=== PATIENT | female | born 1970 | race Caucasian/White ===

== ENCOUNTER → 2016-07-08 | Outpatient (REF) | payer BC ==
[2016-07-08 13:50] LABS: TOTAL PROTEIN 5.9 GM/DL (6.4-8.2)
[2016-07-10 00:08] LABS: FREE KAPPA LIGHT CHAINS SERUM <0.60 mg/L (3.30-19.40); FREE LAMBDA LIGHT CHAINS SERUM <1.30 mg/L (5.71-26.30)
[2016-07-12 11:12] LABS: ALBUMIN 3.98 GM/DL (3.29-5.55); ALBUMIN % 67.5 % (55.8-66.1); GAMMA GLOBULIN % 5.4 % (11.1-18.8)
== END ==
LOC: M LAB REF 13:28
PROVIDERS: ATTEND Internal Medicine Medical Oncology
DX: C90.00 Multiple myeloma not having achieved remission (principal)

== ENCOUNTER → 2016-10-05 | Outpatient (REF) | payer BC ==
[2016-10-05 14:16] LABS: TOTAL PROTEIN 6.2 GM/DL (6.4-8.2)
[2016-10-07 00:06] LABS: FREE KAPPA LIGHT CHAINS SERUM 3.25 mg/L (3.30-19.40); FREE LAMBDA LIGHT CHAINS SERUM 2.19 mg/L (5.71-26.30); KAPPA/LAMBDA RATIO SERUM 1.48 (0.26-1.65)
[2016-10-08 11:00] LABS: ALBUMIN 4.46 GM/DL (3.29-5.55)
== END ==
LOC: M LAB REF 12:54
PROVIDERS: ATTEND Internal Medicine Medical Oncology
DX: C90.00 Multiple myeloma not having achieved remission (principal)

== ENCOUNTER → 2017-03-18 | Outpatient (REF) | payer BC ==
[2017-03-18 13:30] LABS: BASO # 0.1 10^3/uL (0.0-0.2); BASO % 1.6 % (0.0-1.0); EOS # 0.1 10^3/uL (0.0-0.50); EOS % 2.9 % (0.0-3.0); IMMATURE GRANULOCYTE % 0.5 % (0-0); LYMPH # 0.5 10^3/uL (1.5-4.5); LYMPH % 11.3 % (24.0-44.0); MEAN CORPUSCULAR HEMOGLOBIN 31.6 pg (27.0-33.0); MEAN CORPUSCULAR HGB CONC 33.7 g/dl (32.0-36.5); MEAN CORPUSCULAR VOLUME 93.9 fl (80.0-96.0); MONO # 0.5 10^3/uL (0.0-0.8); MONO % 11.1 % (0.0-5.0); NEUTROPHILS # 3.2 10^3/uL (1.8-7.7); NEUTROPHILS % 72.6 % (36.0-66.0); PLATELET COUNT, AUTOMATED 154 10^3/uL (150-450); RED CELL DISTRIBUTION WIDTH 13.6 % (11.5-14.5); WHITE BLOOD COUNT 4.4 10^3/uL (4.0-10.0)
[2017-03-18 13:47] LABS: VITAMIN B12 LEVEL 993 PG/ML (247-911)
[2017-03-18 13:48] LABS: FOLATE > 24.0 NG/ML (>5.4)
[2017-03-18 14:09] LABS: ALBUMIN 4.3 GM/DL (3.2-5.2); ALBUMIN/GLOBULIN RATIO 1.95 (1.00-1.93); ALKALINE PHOSPHATASE 167 U/L (45-117); ALT/SGPT 535 U/L (12-78); ANION GAP 5 MEQ/L (8-16); AST/SGOT 434 U/L (15-37); BILIRUBIN,TOTAL 0.7 MG/DL (0.2-1.0); BLOOD UREA NITROGEN 14 MG/DL (7-18); CALCIUM LEVEL 8.9 MG/DL (8.5-10.1); CARBON DIOXIDE LEVEL 33 MEQ/L (21-32); CHLORIDE LEVEL 104 MEQ/L (98-107); CREATININE FOR GFR 0.67 MG/DL (0.55-1.02); GLOMERULAR FILTRATION RATE > 60.0 (>58); GLUCOSE, FASTING 75 MG/DL (70-105); POTASSIUM SERUM 3.7 MEQ/L (3.5-5.1); SODIUM LEVEL 142 MEQ/L (136-145); TOTAL PROTEIN 6.5 GM/DL (6.4-8.2)
[2017-03-18 14:12] LABS: ERYTHROCYTE SEDIMENTATION RATE 8 mm/hr (0-20)
[2017-03-22 10:38] LABS: ALBUMIN 4.43 GM/DL (3.29-5.55); ALBUMIN % 68.1 % (55.8-66.1); GAMMA GLOBULIN % 5.4 % (11.1-18.8)
[2017-03-23 08:06] LABS: SJOGREN'S ANTI SS-A <0.2 AI (0.0-0.9); SJOGREN'S ANTI SS-B <0.2 AI (0.0-0.9); VITAMIN E LEVEL 13.6 mg/L (5.3-16.8)
== END ==
LOC: M LABNEURO 09:32
PROVIDERS: ATTEND Psychiatry & Neurology Neurology
DX: G62.9 Polyneuropathy, unspecified (principal)

== ENCOUNTER → 2018-09-30 | Outpatient (CLI) | payer BC ==
[2018-09-30 19:27] LABS: BASO % 0.4 % (0.0-1.0); EOS # 0.1 10^3/uL (0.0-0.50); EOS % 0.5 % (0.0-3.0); HEMATOCRIT 43.3 % (36.0-47.0); HEMOGLOBIN 14.2 g/dl (12.0-15.5); LYMPH # 1.4 10^3/uL (1.5-4.5); LYMPH % 14.9 % (24.0-44.0); MEAN CORPUSCULAR HEMOGLOBIN 32.4 pg (27.0-33.0); MEAN CORPUSCULAR HGB CONC 32.8 g/dl (32.0-36.5); MEAN CORPUSCULAR VOLUME 98.9 fl (80.0-96.0); MONO % 11.3 % (0.0-5.0); NEUTROPHILS # 6.6 10^3/uL (1.8-7.7); NEUTROPHILS % 72.6 % (36.0-66.0); PLATELET COUNT, AUTOMATED 177 10^3/uL (150-450); RED BLOOD COUNT 4.38 10^6/uL (4.00-5.40); WHITE BLOOD COUNT 9.1 10^3/uL (4.0-10.0)
== END ==
LOC: M WUC 09:00
PROVIDERS: ATTEND Physician Assistant
DX: J03.90 Acute tonsillitis, unspecified (principal)

== ENCOUNTER → 2018-12-08 | Outpatient (REF) | payer BC, MEDICARE | LOC: M SFHCPLAZ 16:48 | PROVIDERS: ATTEND Dermatology | DX: D22.4 Melanocytic nevi of scalp and neck (principal) ==

== ENCOUNTER → 2018-12-31 | Outpatient (REF) | payer BC, MEDICARE | LOC: M LAB REF 10:15 | PROVIDERS: ATTEND Physician Assistant | DX: R30.0 Dysuria (principal) ==

== ENCOUNTER → 2019-05-01 | Outpatient (REF) | payer BC, MEDICARE | LOC: M LAB REF 18:41 | PROVIDERS: ATTEND Dermatology | DX: D22.4 Melanocytic nevi of scalp and neck (principal) ==

== ENCOUNTER → 2020-01-01 | Outpatient (REF) | payer BC, MEDICARE | LOC: M LAB REF 09:17 | PROVIDERS: ATTEND Dermatology | DX: D22.4 Melanocytic nevi of scalp and neck (principal) ==

== ENCOUNTER → 2021-02-17 | Outpatient (CLI) | payer BC ==
--- NOTE | 2021-02-17 13:38 | DEXAMM ---
INDICATION: H/O AUTOLOGOUS STEM CELL TRANSPLANT/MULTIPLE MYELOMA/REMISSION. COMPARISON: None. TECHNIQUE: Bone density was measured using dual-energy x-ray absorptiometry (DEXA). FINDINGS: AP SPINE L1-L4 BMD 0.972 g/cm2 Young Adult T-Score -1.8 Age Matched Z-Score -1.4. LT FEMUR, TOTAL BMD 0.862 g/cm2 Young Adult T-Score -1.2 Age Matched Z-Score -0.7. LT NECK BMD 0.802 g/cm2 Young Adult T-Score -1.7 Age Matched Z-Score -0.9. RT FEMUR, TOTAL BMD 0.796 g/cm2 Young Adult T-Score -1.7 Age Matched Z-Score -1.2. RT NECK BMD 0.742 g/cm2 Young Adult T-Score -2.1 Age Matched Z-Score -1.4. IMPRESSION: There is low bone density of the spine. There is low bone density of the left hip. There is low bone density of the right hip. FOLLOW-UP: Recommendation for the next bone density exam: 2 years. <Electronically signed by Reynaldo Lott > 02/17/21 0026
== END ==
LOC: M WHC 12:47
PROVIDERS: ATTEND Internal Medicine Hematology & Oncology
DX: C90.00 Multiple myeloma not having achieved remission (principal)

== ENCOUNTER → 2021-11-19 | Outpatient (REF) | payer BC, MEDICARE | LOC: M WUC 11:53 | PROVIDERS: ATTEND Physician Assistant | DX: J03.90 Acute tonsillitis, unspecified (principal) ==

== ENCOUNTER 2023-02-04 10:42 | Day surgery (SDC) | payer BC ==
[~2023-02-04] VITALS: Ht 149.9 cm; Wt 71.8 kg
[~2023-02-04 10:42] MED LIST: ALAW0.02 OD; ALBU8.5H INH; ALLE180T33 PO; ALPR0.25 PO; BACTDSTA PO; BAYE81TA7 PO; BUTA1CAP PO; CALC-218 PO; CARI1TAB7 PO; COLA100C5 PO; DULO1CAP5 PO; GABA-282 PO; HYDR-3713 PO; MAGN400C PO; MIRA3350 PO; MONT10TA97 PO; NIFE-3 PO; OMEG12003 PO; OMEP40CA5 PO; ONE-TAB33 PO; POMA2CAP PO; PRED5TA PO; REFR0.5D8 OD; VALA500T5 PO; XGEVINJ SC; ZYRT10TA12 PO; ceFAZolin SOD 2 GM in IV 1 EA IV ONE
[2023-02-04] MEDS ORDERED: LR 1,000 ML IV SCH (11:15)
[2023-02-04] MEDS ORDERED: propofoL 200 MG/20 ML VIAL As Ordered ONE ×2 (13:22→13:23)
[2023-02-04] MEDS ORDERED: LIDOCAINE 2% 100MG/5ML SDV (FOR ANES.) As Ordered ONE (13:24)
[2023-02-04] MEDS ORDERED: GENTAMICIN SULF 80MG/2ML VIAL As Ordered ONE (14:01)
[2023-02-04] MEDS ORDERED: LIDOCAINE 2% MDV 20ML VIAL As Ordered ONE (14:01)
[2023-02-04] MEDS ORDERED: MIDAZOLAM INJ 2MG/2ML VIAL As Ordered ONE (14:04)
[2023-02-04] MEDS ORDERED: fentaNYL 100 MCG/2 ML INJECTION As Ordered ONE (14:04)
[2023-02-04 15:26] VITALS: BP 114/51; TEMP 97.3; O2SAT 97
== END 2023-02-04 15:50 | disposition home or self-care (01) ==
LOC: M SDC 10:42
PROVIDERS: ATTEND Podiatrist
DX: M20.41 Other hammer toe(s) (acquired), right foot (principal)
CPT/HCPCS: 28285; 73630; 76000; 88300; J0665; J0690; J1580; J2250; J3010

== ENCOUNTER → 2025-02-25 | Outpatient (CLI) | payer BC, MEDICARE ==
[~2025-02-25] MED LIST changes: +CARI-555 PO; -CARI1TAB7 PO; +GABA-1172 PO; -GABA-282 PO; -ceFAZolin SOD 2 GM in IV 1 EA IV ONE
== END ==
LOC: M WHC 09:38
PROVIDERS: ATTEND Nurse Practitioner Family
DX: C90.01 Multiple myeloma in remission (principal); D80.9 Immunodeficiency with predominantly antibody defects, unspecified; M85.89 Other specified disorders of bone density and structure, multiple sites

== ENCOUNTER → 2025-05-27 | Outpatient (CLI) | payer BC, MEDICARE ==
[~2025-05-27] MED LIST changes: -BACTDSTA PO; +ISOVUE-370 76% 100 ML VIAL As Ordered ONE; +SULF-8 PO
== END ==
LOC: M RAD 08:53
PROVIDERS: ATTEND Internal Medicine Hematology & Oncology
DX: R93.89 Abnormal findings on diagnostic imaging of other specified body structures (principal)